=== PATIENT | female | born 1995 | race Caucasian/White ===

== ENCOUNTER 2017-04-21 11:27 | Outpatient (CLI) | payer OTHER | END 2017-04-21 11:28 | LOC: HPCALD 11:27 | PROVIDERS: ATTEND Family Medicine | DX: N30.01 Acute cystitis with hematuria (principal) | CPT/HCPCS: 87086 ==

== ENCOUNTER 2017-10-14 14:28 | Outpatient (CLI) | payer OTHER ==
--- NOTE | 2017-10-14 20:26 | RAD ---
LUMBAR SPINE THREE VIEWS 10/14/17 No fracture, dislocation, or disc space narrowing was seen. No bony anomalies were noted. The SI join ts appeared normal. Incidentally noted was a large amount of fecal material in the colon. IMPRESSION: No acute bony finding. POS: HOME
== END 2017-10-14 14:29 | disposition home or self-care (01) ==
LOC: BURRAD 14:28
PROVIDERS: ATTEND Family Medicine
DX: M54.5 Low back pain (principal)
CPT/HCPCS: 72100

== ENCOUNTER 2021-10-03 22:10 | Outpatient (CLI) | payer OTHER ==
[2021-10-03 22:50] LABS: SARS-CoV-2 NAA Rapid Test Not Detected (NotDetected)
== END 2021-10-03 22:11 | disposition home or self-care (01) ==
LOC: BURLAB 22:10
PROVIDERS: ATTEND Family Medicine
DX: Z20.822 Contact with and (suspected) exposure to COVID-19 (principal)
CPT/HCPCS: U0002

== ENCOUNTER → 2024-09-08 | Day surgery (SDC) | payer BC ==
[~2024-09-08] MED LIST: methylPREDNISolone Sod Succ/PF 125 MG/2 ML VIAL IM SCH
[2024-09-08 16:04] VITALS: BP 112/64; TEMP 98.9
== END ==
LOC: BUR/OP 12:59
PROVIDERS: ATTEND Emergency Medicine Emergency Medical Services
DX: R09.81 Nasal congestion (principal)
CPT/HCPCS: 96372